=== PATIENT | male | born 1985 | race Caucasian/White ===

== ENCOUNTER 2016-11-11 18:30 | Emergency (ER) | payer SELFPAY ==
[~2016-11-11] VITALS: Ht 180.3 cm; Wt 156.0 kg
[2016-11-11 21:28] VITALS: BP 158/93
== END 2016-11-11 21:22 | disposition home or self-care (01) ==
LOC: ED 18:30
DX: S62.604A Fracture of unspecified phalanx of right ring finger, initial encounter for closed fracture (principal); W20.8XXA Other cause of strike by thrown, projected or falling object, initial encounter; Y93.89 Activity, other specified; Y92.89 Other specified places as the place of occurrence of the external cause; Y99.8 Other external cause status
CPT/HCPCS: 90715; A4570

== ENCOUNTER 2017-05-26 07:50 | Emergency (ER) | payer SELFPAY ==
[~2017-05-26] VITALS: Ht 180.3 cm; Wt 161.6 kg
[2017-05-26 08:28] LABS: microscopic required? NO
[2017-05-26 08:32] LABS: UA SPECIFIC GRAVITY 1.015 (1.005-1.035); urine erythrocyte NEGATIVE (NEGATIVE)
[2017-05-26 10:32] VITALS: BP 134/78
== END 2017-05-26 10:32 | disposition home or self-care (01) ==
LOC: ED 07:50
PROVIDERS: Emergency Medicine
DX: N50.3 Cyst of epididymis (principal); M54.41 Lumbago with sciatica, right side

== ENCOUNTER 2018-10-15 14:21 | Emergency (ER) | payer MEDICAID ==
[~2018-10-15] VITALS: Ht 180.3 cm; Wt 164.7 kg
[2018-10-15 14:25] VITALS: Ht 180.3 cm; Wt 164.7 kg
[2018-10-15 17:31] VITALS: BP 128/71
== END 2018-10-15 17:31 | disposition home or self-care (01) ==
LOC: ED 14:21
DX: R07.89 Other chest pain (principal); R09.1 Pleurisy; J40 Bronchitis, not specified as acute or chronic

== ENCOUNTER 2018-11-11 16:13 | Emergency (ER) | payer MEDICAID ==
[~2018-11-11] VITALS: Ht 180.3 cm; Wt 164.2 kg
[2018-11-11 16:33] VITALS: Ht 180.3 cm; Wt 164.2 kg
[2018-11-11 20:03] LABS: BASOPHIL % 0.6 % (0-2); PLATELET COUNT 288 x10^3mcL (130-400); RED CELL DISTRIBUTION WIDTH 13.3 % (11.5-14.5)
[2018-11-11 20:14] LABS: CALCIUM 9.1 mg/dL (8.5-10.1); CARBON DIOXIDE 27.2 mmol/L (21-32); CHLORIDE SERUM 100 mmol/L (98-107); CREATININE SERUM 1.1 mg/dL (0.7-1.3); GFR1 > 60 mL/min; GLUCOSE SERUM 88 mg/dL (74-106); POTASSIUM SERUM 3.9 mmol/L (3.5-5.1); SODIUM SERUM 137 mmol/L (136-145)
[2018-11-11 20:19] LABS: ALBUMIN 3.9 g/dL (3.4-5.0); ALKALINE PHOSPHATASE 83 U/L (46-116); ALT/SGPT 48 U/L (16-63); AST/SGOT 30 U/L (15-37); BILIRUBIN TOTAL 0.49 mg/dL (0.20-1.00); TOTAL PROTEIN, SERUM 8.6 g/dL (6.4-8.2)
[2018-11-11 20:54] VITALS: BP 153/81
== END 2018-11-11 20:54 | disposition home or self-care (01) ==
LOC: ED 16:13
PROVIDERS: Emergency Medicine
DX: J40 Bronchitis, not specified as acute or chronic (principal); N50.3 Cyst of epididymis
CPT/HCPCS: 36415; 83880